=== PATIENT | female | born 1985 | race Two or more races ===

== ENCOUNTER 2025-05-05 21:10 | Emergency (ER) | payer OTHER, SELFPAY ==
--- OUTSIDE RECORDS SUMMARY | 2019-02-11 07:06 | XMS_ITS | Continuity of Care Document ---
Author Organization [facility] Address [address] [place] [id number] Phone Care Team Providers Care Freelance Copywriter Name Role Phone Maty Wilkinson DO Unavailable Unavailable Allergies, Adverse Reactions, Alerts Substance Reaction Status Criticality No Known allergies Advance Directives Directive Yes / No Effective Date File Name No Information Encounters Encounter Description Practice Location Reason(s) For Visit Diagnoses Date Provider Encounter Disposition [facility], [address] [place] [address], [id number], [place] tel:[phone] [facility] No Information Minh Rutledge. [address] [place], [address], [place]. tel:[phone] Family History Family Member Type Diagnosis Age At Onset Uncle Problem (finding) Diabetes mellitus Grandfather Problem (finding) Diabetes mellitus Payers Payer name Insurance type Identifiers Authorization(s) Com ments No Information Social History Type Description Quantity Date Captured Comments Sex Female Smoking Status No Information Current Gender Female (finding) Chief Complaint And Reason For Visit No Information Plan Of Treatment Date Type Action Status Goal Depression screening. Due on due Goal Td vaccine. Due on 19 due Goal Influenza vaccine. Due on due Goal Tdap. Due on due Goal Pap/HPV testing. Due on due History Of Present Illness Encounter Date Complaint History Of Prese nt Illness No Information Functional Status Date Description Comments No Information Instructions Date Instruction Additional Infor mation No Information Assessments Type Assessment Date No Information
[2025-05-05 21:25] VITALS: BP 163/107; PULSE 55; TEMP 36.7; O2SAT 100; BMI 24.0
--- NOTE | 2025-05-06 00:54 | ED_ITS ---
HPI - Medical Clearance General Chief complaint: Medical Clearance Stated complaint: CLEARANCE Time Seen by Provider: 05/06/25 00:44 Source: patient Limitations: no limitations History of Present Illness HPI Narrative: history of alcohol abuse. She relapsed and was sent to [facility]. Has been there for one week. She also normally takes Abilify for depression and mood but has not had Abilify for over a week. Sent here tonight from [facility] to receive something for her mood. She denies suicidal thoughts or homicidal thougths. She does seem to be clear why she is here other than to receive medication for mood Related Information Allergies Allergy/AdvReac Type Severity Reaction Status Date / Time No Known Drug Allergies Allergy Verified 05/05/25 21:37 Review of Systems ROS Status of ROS 10 or more systems reviewed and unremark able except as noted in history and below PFSH PFSH Social History Little interest or pleasure in doing things: not at all Feeling down, depressed, or hopeless: not at all Exam Constitutional Vital Signs, click to edit/add: Last Vital Signs Temp 98.1 F 05/05/25 21:25 Pulse 55 L 05/05/25 21:25 Resp 14 05/05/25 21:25 BP 140/82 05/06/25 02:28 Pulse Ox 100 05/05/25 21:25 O2 Del Method Room Air 05/05/25 21:25 Common normals: no apparent distress, average body habitus, oriented x3, no limitations, healthy appearing, alert and well nourished Eye Common normals: EOMs intact bilaterally and conjunctivae normal Respiratory Common normals: normal respiratory effort, no retractions, no use of accessory muscles and clear to auscultation bilaterally Cardio Common normals: regular rate, regular rhythm, S1 normal heart sound and S2 normal heart sound GI Common normals: Normal to inspection, nondistended, normoactive bowel sounds present and soft to palpation Extremity Common normals: normal to inspection and full ROM Neuro Common normals: oriented x3, CN's II-XII intact bilaterally, moves all extremities and no focal motor deficits Psych Appearance: grossly normal Course Vital Signs Vital signs: Vital Signs Temperature 98.1 F 05/05/25 21:25 Pulse Rate 55 L 05/05/25 21:25 Respiratory Rate 14 05/05/25 21:25 Blood Pressure 163/107 H 05/05/25 21:25 Pulse Oximetry 100 05/05/25 21:25 Oxygen Delivery Method Room Air 05/05/25 21:25 Temperature 98.1 F 05/05/25 21:25 Pulse Rate 55 L 05/05/25 21:25 Respiratory Rate 14 05/05/25 21:25 Blood Pressure 140/82 05/06/25 02:28 Pulse Oximetry 100 05/05/25 21:25 Oxygen Delivery Method Room Air 05/05/25 21:25 MDM - Medical Clearance MDM Narrative Medical decision making narrative: patient has history of alcohol abuse and mood disorder. Resident at [facility] for one week. Reportedly became aggressive to others at the center. Transferred to the ER for treatment of her mood disorder. Arrives in no distress and cooperative. Given dose of Abilify which is what she states she takes to help her mood. then discharged back to [facility] Discharge Plan Discharge Chief Complaint: Medical Clearance Clinical Impression: Mood disorder Patient Disposition: Home, Self-Care Print Language: Namibian Instructions: Mood Disorders (ED) Referrals: Physician,Non-Staff, MD [Primary Care Provider] - 1 week Discharge Date/Time: 05/06/25 02:29
[2025-05-06] MEDS: ARIPIPRAZOLE 5 MG TABLET 10 MG PO (01:18)
[2025-05-06 02:28] VITALS: BP 140/82
== END 2025-05-06 02:29 | disposition home or self-care (01) ==
PROVIDERS: Emergency Provider Internal Medicine
DX: Z02.2 Encounter for examination for admission to residential institution (principal)
CPT/HCPCS: 99283